=== PATIENT | female | born 1960 | race Caucasian/White ===

== ENCOUNTER → 2016-09-21 | Outpatient (CLI) | payer OTHER ==
[~2016-09-21] MED LIST: ASPIRIN81 M2 PO; FISH OIL 1,0001 EACH PO; LIPITOR PO; LISINOPRIL5 MG PO; METFORMIN PO; NAPROSYN-EC500 M1 PO; PRILOSEC PO
--- NOTE | ~2016-09-21 | US128 ---
[id number] [facility]. [place], [place] [address] [id number] O MR#: [id number] Acc #: [id number] NAME: LISE LAURENT : 1960 SEX: F STUDY DATE/TIME: 09/21/2016 14:49 UNIT: [facility] ROOM: STUDY DESCRIPTION: Thyroid Attending Physician: Kimberly Cai M.D. Referring Physician: Kimberly Cai M.D. Ordering Physician: Kimberly Cai M.D. Primary Care Physician: Kimberly Cai M.D. MEDICAL IMAGING REPORT This report is preliminary unless electronic signature is present EXAM Ultrasound of the thyroid gland INDICATION Pain and choking sensation for couple of years. No known thyroid medications. TECHNIQUE [place]-scale and color Doppler sonographic images were obtained through the thyroid gland. FINDINGS Right lobe of thyroid gland is mildly enlarged at 5.1 x 2.7 x 1.5 cm. Left lobe measures within normal size limits at 1.8 x 3.9 x 1.4 cm. Thyroid parenchyma is homogeneous in echotexture. No focal thyroid nodules are seen. IMPRESSION Patient does have some enlargement of the right lobe of the thyroid gland. Study is otherwise unremarkable. Dictated by... Anitha Jaramillo M.D. THIS IS AN ELECTRONICALLY VERIFIED REPORT Anitha Jaramillo M.D. at 09/22/2016 3:29 PM AFF/bharat TD: 09/22/2016 14:27 JOB #: [id number] MEDICAL IMAGING REPORT Page 1 of 1 COPY
== END | disposition home or self-care (01) ==
LOC: CWCC 14:07
DX: M54.2 Cervicalgia (principal); E04.9 Nontoxic goiter, unspecified
CPT/HCPCS: 76536

== ENCOUNTER → 2016-11-17 | Day surgery (SDC) | payer OTHER ==
--- NOTE | ~2016-11-17 | OR ---
Unit #: [id number] #: [id number] Patient: LISE LAURENT [id number] [address] [address] [id number] O MR#: [id number] NAME: LISE LAURENT ROOM: Date of Procedure: 11/17/2016 Admission Date: 11/17/2016 Surgeon: Manuelito Rodriguez M.D. : 1960 Attending Physician: Manuelito Rodriguez M.D. Primary Care Physician: Kimberly Cai M.D. OPERATIVE REPORT PROCEDURE PERFORMED Esophagogastroduodenoscopy with biopsy. INDICATIONS Dysphagia and intermittent chronic GERD symptoms, undergoing evaluation with upper endoscopy. MEDICATIONS Monitored anesthesia. POSTOPERATIVE FINDINGS 1. Small segment of Gaviria esophagus along with hiatal hernia. Biopsies were taken. 2. Normal stomach. 3. Normal duodenum and distal duodenum. PLAN Continue PPI and reflux precautions. Follow up on the pathology report. DESCRIPTION OF PROCEDURE The patient was explained of the procedure, risks, and benefits along with risks and benefits of anesthesia. She was brought to the endoscopy room. Propofol anesthesia was given. Bite block was placed. The scope was passed down the mouth into esophagus, stomach, duodenum, and distal duodenum. Findings as described. Biopsies were taken. Gently, I pulled it out the patient's mouth. She tolerated it well. Dictated by... Beryl Hanson/maritza TD: 11/18/2016 13:53 JOB #: [id number] Unit #: [id number] #: [id number] Patient: LISE LAURENT OPERATIVE REPORT Page 1 of 1 X Manuelito Rodriguez MD X PROCEDURE OPERATIVE NOTE
== END | disposition home or self-care (01) ==
LOC: COPS 12:54
DX: K22.70 Barrett's esophagus without dysplasia (principal); K44.9 Diaphragmatic hernia without obstruction or gangrene; K21.9 Gastro-esophageal reflux disease without esophagitis; R13.10 Dysphagia, unspecified; E11.9 Type 2 diabetes mellitus without complications; K74.60 Unspecified cirrhosis of liver; J44.9 Chronic obstructive pulmonary disease, unspecified; F17.200 Nicotine dependence, unspecified, uncomplicated
CPT/HCPCS: 82947; 88305